=== PATIENT | male | born 1965 | race Caucasian/White ===

== ENCOUNTER → 2018-11-04 | Outpatient (CLI) | payer BC ==
[~2018-11-04] MED LIST: MULTIPLE VITAMI1 CAP PO; NORCO 325 MG-7.1 TAB PO; PERCOCET 325 MG1 TA2 PO; ROBAXIN 75750 MG/TAB PO; ZOFRAN ODT8 MG PO
== END ==
LOC: COL.RAD 08:48
DX: M19.012 Primary osteoarthritis, left shoulder (principal); M75.122 Complete rotator cuff tear or rupture of left shoulder, not specified as traumatic
CPT/HCPCS: A9585; Q9967